=== PATIENT | female | born 1940 | race Caucasian/White ===

== ENCOUNTER 2023-08-25 18:58 | Inpatient (IN) | payer OTHER, SELFPAY ==
[2023-08-25 15:07] VITALS: BP 164/71
--- NOTE | 2023-08-25 16:16 | W.PN.CARDCBS ---
Today's Communication / Plan
-
await labs
IV lasix 40mg BID
decrease toprol to 25mg BID
stop dig. check dig level
Tentatively for implantation of new single-chamber right-sided pacemaker with left bundle pacing Tuesday08/29/2023
continue xarelto for now, however will need to hold pre PPM
Impression / Plan
-
Please refer to office note dated 08/25/23
Primary Health Safety Coordinator: Dr. ANSHUL Taylor
Assessment:
Nausea
Dizziness
Orthopnea
Acute on chronic HFrEF
Concern for failure of ventricular capture
Concern for digoxin toxicity
H/o Inappropriate ICD shock for lead fracture 06/23/23
Medtronic Bi-V ICD Implant
Failure of pacemaker lead LV lead off, diaphragmatic stimulation
LV lead Medtronic [id number] Attain from 06/20/03, RV lead Medtronic 6947 Sprint Quattro from 06/20/03, RA Medtronic 5076 CapSureFix from 10/19/02
CKD 3b
CAD
s/p anterior AL with LAD stent 1995
Ischemic cardiomyopathy
LBBB (left bundle branch block)
Permanent Afib
Chronic anticoagulation with Xarelto
PAD with lower extremity claudication/Occluded R subclavian/bilateral SFA occlusion
Bilateral renal artery stenosis status post bilateral stents
Hypertension
Former smoker
Hyperlipidemia
Type 2 diabetes mellitus
Gout
Echo 06/21/2023: EF 43%, apex and apical septum and apical inferior akinetic/hypokinetic (already known), severely enlarged bilateral atria, mild MR, mild TR
Plan:
-Patient with history of permanent atrial fibrillation, heart failure with mildly reduced EF, ischemic cardiomyopathy status post BiV ICD implant, chronic left bundle branch block, PAD who had been doing well until [place] time. She presented at
that time with dehydration nausea and vomiting and inappropriate ICD discharges related to an RV lead fracture. At that time her ICD tachycardia therapies were turned off due to inappropriate discharges. Then in June she had another admission
for viral illness and possible heart failure. She was then admitted later in June with acute heart failure and at that point heart rate was difficult to control, transiently on digoxin. The beginning of July she was still felt to be in
acute heart failure and furosemide dose increased and cardiomyopathy medicines added back. Digoxin was restarted at that time as well. Most recent outpatient digoxin level was 1.1 and her dig dose was decreased last week due to this. She
presented to the office today with orthopnea, nausea, dizziness, weakness. Device interrogation today in office showed bradycardia, increased ventricular capture threshold, as well as evidence of some failure to capture. Her LV lead produces
diaphragmatic pacing. She is not pacer dependent. Her ventricular rate was increased from 50-70 and output was increased from 2 V to 4 V for now. Plan for admission for diuresis and medical adjustment, with plan for implantation of new
single-chamber pacemaker on the right with left bundle pacing likely early next week.
-Labs pending at this time
-Check dig level. Stop outpatient dig
-IV Lasix 40 mg twice daily
-Decrease Toprol to 25 mg twice daily with hold parameters (was on 50mg BID as OP)
-Continue Xarelto 15mg QPM for now, however will need to hold prior to pacemaker implantation
-Follow on telemetry
-Tentatively for implantation of new single-chamber right-sided pacemaker with left bundle pacing Tuesday08/29/2023
-d/w ER DIRECTOR STRATEGIC PLANNING
Progress Note - Health Safety Coordinator
Subjective
Date of Service: August 25, 2023
Currently feeling okay, just tired. Reports dyspnea on exertion, dizziness, nausea with standing and walking
Objective
Vital Signs and I&O:
Vital Signs
Temp Pulse Resp BP Pulse Ox
97.5 F 70 18 164/71 99
08/25/23 15:07 08/25/23 15:07 08/25/23 15:07 08/25/23 15:07 08/25/23 15:07
Vital Signs
Temp Pulse Resp BP Pulse Ox
97.5 F 70 18 164/71 99
08/25/23 15:07 08/25/23 15:07 08/25/23 15:07 08/25/23 15:07 08/25/23 15:07
Physical Exam
Physical Exam
GEN: No distress, awake, alert, oriented x3
HEENT: supple, anicteric, mmm, eomi. mild subconjunctival hemorrhage on R
LUNGS: CTA anterolaterally, no wheezes/rales
CV: Irreg, S1/S2, no murmur
ABD: soft, BS+, NT/ND
EXT: No cyanosis, clubbing. Trace edema of B/L LE
NEURO: Gross non-focal
SKIN: Warm, pink, dry. No rash
--- NOTE | 2023-08-25 16:37 | ED.GENMED ---
History of Present Illness
<JACY Goldberg - Last Filed: 08/25/23 18:42>
General
Chief Complaint: Heart Rate Problem
Source: patient
Exam Limitations: none
Time Seen by Provider: 08/25/23 16:28
Nursing documentation reviewed up to this point in time: agreed with
Travel History
Have you had any contact with someone who has COVID-19?: No
Do you have any symptoms of coronavirus? Fever > 100 degrees, chills, cough, shortness of breath, sore throat, loss of taste or smell, muscle aches, or headache?: No
History of Present Illness
History of Present Illness:
Patient is an 83-year-old female with past medical history of hypertension hyperlipidemia [place] CHF pacemaker ICD ,, afib, on Xarelto send from cardiology Dr. aTylor's office. Patient was seen today by cardiology and found to have a low heart rate.
She felt lightheaded and nauseous in the office. Her heart rate was 50 in the office, physician assistant baseball coach reports that her pacemaker was previously set to 50 because she had a history of elevated heart rate. Dr. Taylor did increase her heart rate
to 70 and also increased her voltage. Dr Taylor felt that pt also had a component of chf pt is to be admitted for CHF with plan for new pacemaker on Tuesday.
Pt presently has no complaints.SHe does report that recently she has had intermittent dizziness and at times shortness of breath. Denies chest pain.
Past History
<JACY Goldberg - Last Filed: 08/25/23 18:42>
Past History
ED Past Medical History: Arrthythmia (Atrial fibrillation), CHF, HTN and NIDDM
ED Past Surgical History: Other (Agree with documented past medical history)
Social History
Tobacco: Former smoker
Alcohol: None
Drug: None
Personal:
Living: with family
Employment: Retired
Family History
Family History: Diabetes
Review of Systems
<JACY Goldberg - Last Filed: 08/25/23 18:42>
Review of Systems
Allergies reviewed?: Yes
All Other Systems: ROS reviewed and negative except as documented in HPI and ROS
Constitutional: Reports no symptoms; Denies fever, fatigue or chills
EENT: Reports no symptoms
Respiratory: Reports trouble breathing and other (denies now )
Cardiac: Reports no symptoms
ABD/GI: Reports no symptoms
Musculoskeletal: Reports no symptoms
Skin: Reports no symptoms
Neurological: Reports dizzy
Endocrine: Reports no symptoms
Hematologic/Lymphatic: Reports no symptoms
Psychiatric: Reports no symptoms
Phy Exam
<JACY Goldberg - Last Filed: 08/25/23 18:42>
General Physical Exam
General Presentation: no apparent distress
General age: appears stated age
General Skin: warm and dry
General Habitus: normal
General Mental: alert
General Hydration: appears well hydrated
ENT Exam
ENT Exam: EOMI and neck supple
Eye Exam
Eye Exam: PERRL, EOMI and other (pt with subconjunctival hemorrhage right eye reports woke up this way today )
Cardiovascular Exam
Cardiovascular Exam: regular rate/rhythm, no murmur and normal peripheral pulses
Pulmonary Exam
Pulmonary Exam: lungs clear and no respiratory distress
Neurological Exam
Neurological Exam: alert and oriented x3
Musculoskeletal Exam
Musculoskeletal Exam: full ROM
Skin Exam
Skin Exam: normal color and warm/dry
Psychiatric Exam
Psychiatric Exam: normal mood/affect
Course
<JACY Goldberg - Last Filed: 08/25/23 18:42>
Orders/Labs/Results
Orders:
Orders
08/25/23 15:08
Electrocardiogram (*1) Urgent
Reason for Study: Fatigue / Weakness
EKG- Treatment ONCE
08/25/23 16:32
IV Insert/Care/Rem.- Treatment PRN
08/25/23 16:33
Cardiac Monitoring- Treatment ONCE
08/25/23 16:41
Chest [CR Chest - 2 Views ] Urgent
Comment:
Reason For Exam: sob
08/25/23 16:55
Complete Blood Count/With Diff Urgent
Comprehensive Metabolic Panel Urgent
Digoxin Urgent
Pro-BNP [NT-proBNP] Urgent
TSH Urgent
08/25/23 17:04
CARDIOLOGY CONSULT Routine
Consulting Provider: Alon Taylor
Was physician already notified: Yes
08/25/23 18:20
Admit/Transfer Patient As Directed
Co-Sign Provider:
Level of Care: Inpatient admission
Assign to:: Telemetry
Physician / Group: ariadna gary
Diagnosis: CHF
Reason for Telemetry: Acute Heart Failure
Date to Stop Telemetry: 08/28/23
Time to Stop Telemetry: 11:00
Reason for Hospitalization: CHF
Expected length of stay greater than two midnights?: Yes
ELOS- Estimated Length of Stay in days: 3
I certify the patient meets the requirements for IP care: Yes
08/25/23 18:24
Code Status As Directed
Resuscitation Status: Full Code
08/28/23 11:00
DC Protocol for Telemetry ONCE
Abnormal Lab Results
08/25/23
16:55
RBC 3.10 L 10^6/uL
(4.20-5.40)
Hgb 10.9 L g/dL
(12.0-16.0)
Hct 31.2 L %
(37.0-47.0)
MCV 100.6 H fL
(81.0-99.0)
MCH 35.2 H pg
(27.0-31.0)
RDW 18.2 H %
(11.5-14.5)
Absolute Lymphs (auto) 0.9 L 10^3/uL
(1.2-3.4)
Lymphocytes % 19.1 L %
(20.5-51.1)
Monocytes % 10.8 H %
(1.7-9.3)
BUN 18 H mg/dl
(7-17)
Glucose 101 H mg/dl
(70-99)
Total Bilirubin 2.8 H mg/dl
(0.2-1.3)
08/25/23 16:55
08/25/23 16:55
Vital Signs
Initial and Last Documented VS:
Initial Vital Signs
Temp Pulse Resp BP Pulse Ox
97.5 F 70 18 164/71 99
08/25/23 15:07 08/25/23 15:07 08/25/23 15:07 08/25/23 15:07 08/25/23 15:07
Last Documented Vital Signs
Temp Pulse Resp BP Pulse Ox
97.5 F 70 18 164/71 99
08/25/23 15:07 08/25/23 15:07 08/25/23 15:07 08/25/23 15:07 08/25/23 15:07
Registered Nurse Behavioral Health consulted with Physician
Registered Nurse Behavioral Health consulted with physician?: Yes
Name of Physician Consulted: nya
<Cheko Mace, DO - Last Filed: 08/25/23 17:00>
Orders/Labs/Results
Orders:
Orders
08/25/23 15:08
Electrocardiogram (*1) Urgent
Reason for Study: Fatigue / Weakness
EKG- Treatment ONCE
08/25/23 16:32
IV Insert/Care/Rem.- Treatment PRN
08/25/23 16:33
Cardiac Monitoring- Treatment ONCE
08/25/23 16:41
Chest [CR Chest - 2 Views ] Urgent
Comment:
Reason For Exam: sob
08/25/23 16:55
Complete Blood Count/With Diff Urgent
Comprehensive Metabolic Panel Urgent
Digoxin Urgent
Pro-BNP [NT-proBNP] Urgent
TSH Urgent
08/25/23 17:04
CARDIOLOGY CONSULT Routine
Consulting Provider: Alon Taylor
Was physician already notified: Yes
08/25/23 18:20
Admit/Transfer Patient As Directed
Co-Sign Provider:
Level of Care: Inpatient admission
Assign to:: Telemetry
Physician / Group: ariadna gary
Diagnosis: CHF
Reason for Telemetry: Acute Heart Failure
Date to Stop Telemetry: 08/28/23
Time to Stop Telemetry: 11:00
Reason for Hospitalization: CHF
Expected length of stay greater than two midnights?: Yes
ELOS- Estimated Length of Stay in days: 3
I certify the patient meets the requirements for IP care: Yes
08/25/23 18:24
Code Status As Directed
Resuscitation Status: Full Code
08/28/23 11:00
DC Protocol for Telemetry ONCE
Abnormal Lab Results
08/25/23
16:55
RBC 3.10 L 10^6/uL
(4.20-5.40)
Hgb 10.9 L g/dL
(12.0-16.0)
Hct 31.2 L %
(37.0-47.0)
MCV 100.6 H fL
(81.0-99.0)
MCH 35.2 H pg
(27.0-31.0)
RDW 18.2 H %
(11.5-14.5)
Absolute Lymphs (auto) 0.9 L 10^3/uL
(1.2-3.4)
Lymphocytes % 19.1 L %
(20.5-51.1)
Monocytes % 10.8 H %
(1.7-9.3)
BUN 18 H mg/dl
(7-17)
Glucose 101 H mg/dl
(70-99)
Total Bilirubin 2.8 H mg/dl
(0.2-1.3)
08/25/23 16:55
08/25/23 16:55
Vital Signs
Initial and Last Documented VS:
Initial Vital Signs
Temp Pulse Resp BP Pulse Ox
97.5 F 70 18 164/71 99
08/25/23 15:07 08/25/23 15:07 08/25/23 15:07 08/25/23 15:07 08/25/23 15:07
Last Documented Vital Signs
Temp Pulse Resp BP Pulse Ox
97.5 F 70 18 164/71 99
08/25/23 15:07 08/25/23 15:07 08/25/23 15:07 08/25/23 15:07 08/25/23 15:07
<JCAY Goldberg - Last Filed: 08/25/23 18:42>
MDM/Problems Addressed
Differential Diagnosis Includes:
not limited to : dysfunction of PM chf
MDM/Problems Addressed:
83-year-old female sent by cardiology for admission. Patient was found to have low heart rate in the office, she has noted to have a fracture wire from her pacemaker. Patient will need admission for new pacemaker insertion. Also mill hand plate mill
concerned about a component of CHF. Patient has been complaining of intermittent shortness of breath and dizziness. Patient is presently asymptomatic stable vital signs. Digoxin level 0.9. Patient denies any cough URI symptoms fever chills.
Formal radiology report does read lung space showing mild airspace disease in both lower lung mantilla left greater than right no perfusion or pneumothorax will hold off on antibiotics no clinical s/s. Patient adm to hospitalist service.
Chronic conditions affecting care:
aifb/on antcoag, PM
<JACY Goldberg - Last Filed: 08/25/23 18:42>
*Radiology
Radiology exam reviewed: radiology read reviewed
*Pulse Oximetry
Patient hypoxic: no
*EKG
Interpreted by ED Provider?: Yes
Heart Rate: 53
Rate: bradycardiac
Rhythm: a-fib and ventricular paced
QRS Pattern: left bundle branch block
Ischemia: no ischemia
*Critical Care Note
Total Time (30-74mins, 75-104mins- exclusive of procedures): Not Applicable
ED Attending Note
<JACY Goldberg - Last Filed: 08/25/23 18:42>
-
Portions of this chart may have been created with voice recognition software.� Occasional wrong word or��sound alike� substitutions may have occurred due to the inherent limitations of voice recognition software.
<Cheko Mace DO - Last Filed: 08/25/23 17:00>
ED Attending Note
Patient seen and examined by attending physician: Yes
I performed the substantive portion of visit, reviewed & personally made and approve the management plan that is documented in note by myself or BC.: Yes
ED Attending Note:
I have seen and evaluated the patient with a [id number] encounter. I have spoken to the advance practicer provider and involved in the medical history, the physical exam, medical decision making.
Evaluation and management service: agree unless noted differently below.
Results interpretation: agree unless noted differently below.
Focused HPI: 83-year-old female presenting for evaluation of shortness of breath. Patient states she is feeling better but patient found to have a failing pacemaker. Cardiology evaluated her and sent her in for admission for probable new pacemaker
on Tuesday
Physical exam: Sitting in bed comfortably. No acute distress. No respiratory distress
Medical Decision Making: Will admit to hospital service admit cardiology will follow
Discharge Plan
Departure
Patient Disposition: Admit
Date of Disposition: 08/25/23
Time of Disposition: 17:42
Admit to: Telemetry
Admit to doctor: hospitalist
Presentation/result/management discussed w/ accepting MD/DO: Hospitalist
Patient with high blood pressure during this ER visit?: Yes
Condition: Fair
Covid-19: Not Applicable
Discharge Problem:
Dizziness
Prescriptions:
No Action
Xarelto 15 mg tablet
15 mg PO QPM 30 Days Qty: 30 0RF
metoprolol succinate 50 mg Tablet Extended Release 24 Hr
50 mg PO BID 30 Days Qty: 60 0RF
furosemide 40 mg tablet
40 mg PO DAILY
ferrous sulfate [FeroSul] 325 mg (65 mg iron) tablet
325 mg PO DAILY
Entresto 24-26 mg Tablet
1 tab PO BID Qty: 60 0RF
potassium chloride 10 mEq Tablet Extended Release
10 meq PO BID
digoxin 125 mcg (0.125 mg) Tablet
125 mcg PO DAILY
Referrals:
Richard Reagan MD [Family Provider] -
Interventions
Interventions:
*Risk Screen - Suicide Last Done: 08/25/23 15:07
*General Assessment Last Done: 08/25/23 15:07
*Neglect/Abuse Screening Last Done: 08/25/23 15:07
*ED COVID-19 Vaccine History Last Done: 08/25/23 15:07
[2023-08-25 17:11] LABS: % Basophils 1.6 % (0-2); % Eosinophils 2.2 % (0-6); % Immature Granulocytes 0.4 % (0-0.5); % Lymphocytes 19.1 % (20.5-51.1); % Monocytes 10.8 % (1.7-9.3); % Neutrophils 65.9 % (42.2-75.2); Absolute Basophils 0.1 10^3/uL (0-0.2); Absolute Eosinophils 0.1 10^3/uL (0-0.7); Absolute Lymphocytes 0.9 10^3/uL (1.2-3.4); Absolute Monocytes 0.5 10^3/uL (0.1-0.6); Absolute Neutrophils 3.2 10^3/uL (1.4-6.5); Hematocrit 31.2 % (37.0-47.0); Hemoglobin 10.9 g/dL (12.0-16.0); Mean Corp Hgb Conc. 34.9 g/dL (33.0-37.0); Mean Corpuscular Hgb 35.2 pg (27.0-31.0); Mean Corpuscular Volume 100.6 fL (81.0-99.0); Mean Platelet Volume 9.8 fL (7.4-10.4); Nucleated Red Blood Cells % 0 %; Platelet Count 181 10^3/uL (130-400); Red Cell Dist. Width 18.2 % (11.5-14.5); White Blood Cell Count 4.9 10^3/uL (4.8-10.8)
[2023-08-25 17:27] LABS: ALT (SGPT) 19 U/L (0-35); AST (SGOT) 26 U/L (14-36); Alkaline Phosphatase 110 U/L (38-126); Blood Urea Nitrogen 18 mg/dl (7-17); Calcium 9.2 mg/dl (8.4-10.2); Carbon Dioxide 27 mmol/L (22-30); Chloride 106 mmol/L (98-107); Digoxin 0.9 ng/ml (0.8-2.0); Glucose 101 mg/dl (70-99); Potassium 4.1 mmol/L (3.5-5.1); Sodium 137 mmol/L (135-145); Total Bilirubin 2.8 mg/dl (0.2-1.3); Total Protein 6.9 g/dl (6.3-8.2); eGFR > 60.00
[2023-08-25 17:31] LABS: NT-proBNP 13500 pg/ml
--- NOTE | 2023-08-25 18:01 | HPS.HSE ---
Addendum entered and electronically signed by Ryland Moya MD 08/25/23 22:20:
I independently saw and examined the patient on August 25, 2023.
The REGISTERED N[facility]SE BEH[facility]IORAL HEALTH's note was reviewed and I agree with the note.
Comment:
83-year-old female with past medical history of hypertension hyperlipidemia [place] CHF pacemaker ICD, afib, on Xarelto was sent from practice specialist Dr. Taylor's office due to lightheadedness. Patient was seen today by cardiology and found to have a low
heart rate. She felt lightheaded and nauseous in the office. Her heart rate was 50 in the office, physician certified pharmacist assistant reports that her pacemaker was previously set to 50 bpm because she had a history of elevated heart rate. Dr. Taylor did increase
her pacemaker heart rate to 70 and also increased her voltage.
Vital Signs
AFVSS
Physical Exam
General: Well Developed, Well Nourished and No Apparent Distress
HEENT: Normocephalic, Moist mucous membranes and Atraumatic
Respiratory: Decreased breath sounds bilaterally
Cardiac: S1/S2 and Regular Rhythm
GI: Soft, Non Tender, Non Distended and Normal Bowel Sounds
Musculoskeletal: No Cyanosis and No Edema
Skin: Warm. Dry.
Neuro: AAO x 3 and Nonfocal/grossly intact
Psych: Calm
Assessment/Plan
# Dizziness likely from bradycardia
-EKG with A-fib with slow ventricular response, left bundle branch block
-Toprol decreased to 25 mg twice a day
-Stop digoxin
-As per cardiology tentatively for implantation of new single-chamber right-sided pacemaker with left bundle pacing on Tuesday08/29/23
-Xarelto continued
-Cardiology consulted, recommendations appreciated
#intermittent short of breath likely CHF exacerbation
-BNP 15445
-IV Lasix 40 mg twice a day
-Echo 06/21/23: EF 43%. Normal right ventricular size and function. Severely enlarged left atrium. Severely enlarged right atrium. Mild mitral regurgitation. Mild tricuspid regurgitation.
-Daily weights
-Strict JOSE
# Anemia of chronic disease
-Hemoglobin stable at 10.9
-No active bleeding
-Continue to monitor
#Essential Hypertension
-cont BB
-Entresto continued
#PAD with lower extremity claudication/Occluded R subclavian/bilateral SFA occlusion
#Bilateral renal artery stenosis status post bilateral stents
#h/o CAD s/p PCI: cont BB
#h/o Medtronic Bi-V ICD Implant
Review history
#FULL/Xarelto
Original Note:
Family Physician
-
Family Physician: Richard Reagan
Chief Complaint
-
sob
dizzy
History of Present Illness
83-year-old female with past medical history of hypertension hyperlipidemia [place] CHF pacemaker ICD ,, afib, on Xarelto send from cardiology Dr. Taylor's office.patient stated dizzy when she is up. Patient was seen today by cardiology and found to have
a low heart rate.� She felt lightheaded and nauseous in the office.� Her heart rate was 50 in the office, physician certified pharmacist assistant reports that her pacemaker was previously set to 50 because she had a history of elevated heart rate.� Dr. Taylor did
increase her heart rate to 70 and also� increased� her voltage. patient also complained of sob. denied chest pain. denied fever, chills. denied runny nose congestion and cough. denied abdominal pain diarrhea. stated she does not feel like fully
emptying her bladder.
plan for pacemaker change on Tuesday. admitting for further management.
Medical History
Past Medical History
Past Medical History: Reports Other
Additional Past Medical History:
Viral respiratory illness
chronic heart failure with medium ejection fraction
chronic kidney disease stage III ???
mild Anemia
mild vitamin B12 deficiency,
iron deficiency, anemia of chronic disease
Atrial fibrillation
hyperlipidemia, peripheral arterial disease, coronary artery disease
Past Surgical History: Reports Other
Additional Past Surgical History:
AICD implant , PCI
cardiac stent
right shoulder surgery
Social History
Tobacco: Former Smoker
Alcohol: None
Drug: None
Family History
Family History: Not pertinent
Allergies / Home Medications
Allergies reflects when Allergies were last updated in [facility].
Home Medications with original date entered in [facility]
Allergy/Medication List:
Allergies
Allergy/AdvReac Type Severity Reaction Status Date / Time
No Known Allergies Allergy Verified 08/25/23 15:08
Home Medications
metoprolol succinate 50 mg tablet,extended release 24 hr 50 mg PO BID 30 days #60 tabs 07/06/23
rivaroxaban 15 mg tablet (Xarelto) 15 mg PO QPM 30 days #30 tabs 07/06/23
ferrous sulfate 325 mg (65 mg iron) tablet (FeroSul) 325 mg PO DAILY Supplement 07/17/23
furosemide 40 mg tablet 40 mg PO DAILY Fluid Retention/Swelling 07/17/23
sacubitril 24 mg-valsartan 26 mg tablet (Entresto) 1 tab PO BID #60 tabs 07/20/23
digoxin 125 mcg (0.125 mg) tablet 125 mcg PO DAILY 08/25/23
potassium chloride 10 mEq tablet,extended release 10 meq PO BID 08/25/23
Review of Systems
-
Constitutional: Reports No Symptoms
EENT: Reports No Symptoms
Respiratory: Reports Trouble Breathing
Cardiac: Reports No Symptoms
Abdomen/GI: Reports No Symptoms
: Reports No Symptoms
Musculoskeletal: Reports No Symptoms
Skin: Reports No Symptoms
Neurological: Reports Dizzy
Endocrine: Reports No Symptoms
Hematologic/Lymphatic: Reports No Symptoms
Psych: Reports No Symptoms
Physical Exam
Vital Signs
Vital Signs
Temp Pulse Resp BP Pulse Ox
97.5 F 70 18 164/71 99
08/25/23 15:07 08/25/23 15:07 08/25/23 15:07 08/25/23 15:07 08/25/23 15:07
Physical Exam
General: Well Developed, Well Nourished and No Apparent Distress
HEENT: NormoCephalic, Moist mucous membranes and Atraumatic
Respiratory: Clear
Cardiac: S1/S2 and Regular Rhythm; No Murmur or Rub
GI: Soft, Non Tender, Non Distended and Normal Bowel Sounds; No Organomegaly
Rectal: Deferred by Provider
Musculoskeletal: No Clubbing, No Cyanosis and No Edema
Skin: No Rash
Neuro: AO x 3 and Nonfocal/grossly intact
Psych: Calm
Laboratory Results
-
08/25/23 16:55
08/25/23 16:55
Laboratory Results
Total Bilirubin 2.8 mg/dl (0.2-1.3) H 08/25/23 16:55
AST 26 U/L (14-36) 08/25/23 16:55
ALT 19 U/L (0-35) 08/25/23 16:55
Alkaline Phosphatase 110 U/L (38-126) 08/25/23 16:55
Data Reviewed
-
Lab Data: Labs Reviewed by me
Impression/Plan
-
# Dizziness likely from bradycardia
-EKG with A-fib with slow ventricular response, left bundle branch block
-Toprol decreased to 25 mg twice a day
-Stop digoxin
-As per cardiology tentatively for implantation of new single-chamber right-sided pacemaker with left bundle pacing on Tuesday
-Xarelto continued
-Cardiology consulted
#intermittent short of breath likely CHF exacerbation
-BNP 14032
-IV Lasix 40 mg twice a day
-Echo 06/21/23: EF 43%. Normal right ventricular size and function.�Severely enlarged left atrium.�Severely enlarged right atrium.�Mild mitral regurgitation.�Mild tricuspid regurgitation.
-Daily weights
-Strict JOSE
# Anemia of chronic disease
-Hemoglobin stable at 10.9
-No active bleeding
-Continue to monitor
#Essential Hypertension
-cont BB
-Entresto continued
#PAD with lower extremity claudication/Occluded R subclavian/bilateral SFA occlusion
#Bilateral renal artery stenosis status post bilateral stents
#h/o CAD s/p PCI: cont BB
#h/o Medtronic Bi-V ICD Implant
#FULL/Xarelto
[2023-08-25 18:08] LABS: TSH 3.79 uIU/ml (0.47-4.68)
[2023-08-25 19:40] VITALS: BP 164/70
[2023-08-25 19:57] VITALS: BMI 24.8
[2023-08-25 20:14] VITALS: BMI 24.8
[2023-08-25 20:19] VITALS: BMI 24.8
--- NOTE | 2023-08-25 20:29 | PTCARENOTE ---
Patient admitted from ED via stretcher with diagnosis of CHF. Patient is AAO x3, on RA, in no acute distress. Tele monitor applied. Patient oriented to unit and call coleman is within reach.
[2023-08-25] MEDS: XARELTO 15 MG PO (20:30)
[2023-08-25] MEDS: TOPROL XL 25 MG PO (20:31)
[2023-08-25] MEDS: ENTRESTO 24 MG/26 MG 1 TAB PO (20:31)
[2023-08-25] MEDS: KCL 10 MEQ PO (20:32)
[2023-08-25] MEDS: ATIVAN 0.5 MG PO (21:11)
[2023-08-26] VITALS (8 sets, daily range): BP systolic 106–152; BP diastolic 44–66; BMI 24.6
[2023-08-26 07:46] LABS: Hematocrit 29.3 % (37.0-47.0); Hemoglobin 9.9 g/dL (12.0-16.0); Mean Corp Hgb Conc. 33.8 g/dL (33.0-37.0); Mean Corpuscular Hgb 34.1 pg (27.0-31.0); Platelet Count 167 10^3/uL (130-400); Red Cell Dist. Width 17.8 % (11.5-14.5); White Blood Cell Count 4.5 10^3/uL (4.8-10.8)
[2023-08-26 08:33] LABS: ALT (SGPT) 18 U/L (0-35); AST (SGOT) 24 U/L (14-36); Albumin 3.4 g/dl (3.5-5.0); Alkaline Phosphatase 104 U/L (38-126); Blood Urea Nitrogen 18 mg/dl (7-17); Calcium 8.6 mg/dl (8.4-10.2); Carbon Dioxide 25 mmol/L (22-30); Chloride 109 mmol/L (98-107); Direct Bilirubin 0.6 mg/dl (0.0-0.4); Estimated Creatinine Clearance 37 ml/min; Glucose 106 mg/dl (70-99); HDL Cholesterol 23 mg/dl; LDL Cholesterol, Calculated 25 mg/dl; Magnesium 2.4 mg/dl (1.6-2.3); Potassium 3.8 mmol/L (3.5-5.1); Sodium 138 mmol/L (135-145); Total Bilirubin 2.3 mg/dl (0.2-1.3); Total Cholesterol 84 mg/dl (50-199); Total Protein 6.2 g/dl (6.3-8.2); Triglyceride 182 mg/dl (10-149); Very Low Density Lipoprotein 36 mg/dl (0-30); eGFR > 60.00
[2023-08-26] MEDS: ENTRESTO 24 MG/26 MG 1 TAB PO ×2 (08:42→21:56)
[2023-08-26] MEDS: KCL 10 MEQ PO ×2 (08:43→21:57)
[2023-08-26] MEDS: LASIX 40 MG IV ×2 (08:44→17:13)
[2023-08-26] MEDS: FEOSOL 325 MG PO (08:44)
[2023-08-26] MEDS: TOPROL XL 25 MG PO (08:45)
--- NOTE | 2023-08-26 08:49 | W.PN.CARDCBS ---
Addendum entered and electronically signed by Alon Taylor MD 08/26/23 11:14:
Patient again has lost capture with pacemaker. Will proceed with new pacemaker system today.
Addendum entered and electronically signed by Alon Taylor MD 08/26/23 10:39:
Pacemaker interrogated, sensor turned off so she will paced V00. Outputs maximized. Capture now good,
Will hold metoprolol and digoxin, plan on pacemaker on Tuesday. Consider transfer to IVU.
Original Note:
Today's Communication / Plan
-
Interrogate pacemaker, maximize voltage and pulse with, decrease sensitivity
Continue to hold metoprolol and digoxin
Patient will need pacemaker. Would not intervene on current system at present, favor single-chamber conduction system pacing via right subclavian vein
Timing to be determined based on pacemaker interrogation
Okay to continue IV Lasix at present
Discussed with Dr. Cristobal
Impression / Plan
-
Please refer to office note dated 08/25/23
Primary Uc Architect: Dr. ANSHUL Taylor
Assessment:
Nausea
Dizziness
Orthopnea
Acute on chronic HFrEF
Concern for failure of ventricular capture
Concern for digoxin toxicity
H/o Inappropriate ICD shock for lead fracture 06/23/23
Medtronic Bi-V ICD Implant
Failure of pacemaker lead LV lead off, diaphragmatic stimulation
LV lead Medtronic [id number] Attain from 06/20/03, RV lead Medtronic 6947 Sprint Quattro from 06/20/03, RA Medtronic 5076 CapSureFix from 10/19/02
CKD 3b
CAD
s/p anterior [place] with LAD stent 1995
Ischemic cardiomyopathy
LBBB (left bundle branch block)
Permanent Afib
Chronic anticoagulation with Xarelto
PAD with lower extremity claudication/Occluded R subclavian/bilateral SFA occlusion
Bilateral renal artery stenosis status post bilateral stents
Hypertension
Former smoker
Hyperlipidemia
Type 2 diabetes mellitus
Gout
Echo 06/21/2023: EF 43%, apex and apical septum and apical inferior akinetic/hypokinetic (already known), severely enlarged bilateral atria, mild MR, mild TR
Plan:
She looks better regarding heart failure, but her right ventricular lead function is deteriorating.
We will interrogate pacemaker, maximize output, decrease sensitivity and make decision about timing of new pacing system, would like to optimize hemodynamic status for another 48 hours but may need to proceed today based on interrogation.
Restart spironolactone
Hold digoxin and metoprolol
Keep n.p.o. for now
-Patient with history of permanent atrial fibrillation, heart failure with mildly reduced EF, ischemic cardiomyopathy status post BiV ICD implant, chronic left bundle branch block, PAD who had been doing well until [place] time. She presented at
that time with dehydration nausea and vomiting and inappropriate ICD discharges related to an RV lead fracture. At that time her ICD tachycardia therapies were turned off due to inappropriate discharges. Then in June she had another admission
for viral illness and possible heart failure. She was then admitted later in June with acute heart failure and at that point heart rate was difficult to control, transiently on digoxin. The beginning of July she was still felt to be in
acute heart failure and furosemide dose increased and cardiomyopathy medicines added back. Digoxin was restarted at that time as well. Most recent outpatient digoxin level was 1.1 and her dig dose was decreased last week due to this. She
presented to the office today with orthopnea, nausea, dizziness, weakness. Device interrogation today in office showed bradycardia, increased ventricular capture threshold, as well as evidence of some failure to capture. Her LV lead produces
diaphragmatic pacing. She is not pacer dependent. Her ventricular rate was increased from 50-70 and output was increased from 2 V to 4 V for now. Plan for admission for diuresis and medical adjustment, with plan for implantation of new
single-chamber pacemaker on the right with left bundle pacing likely early next week.
Progress Note - Uc Architect
Subjective
Date of Service: August 26, 2023:
Still dizzy, mildly nauseated, breathing is better
Allergies: None
Outpatient medications: Digoxin 125 mcg 5 days a week, iron, furosemide 40 mg twice daily, potassium 10 mill equivalents, 3 tabs per day, furosemide 40 mg twice daily, metoprolol ER 50 mg twice daily, Xarelto 15 mg a day, had been on spironolactone
0.5 mg daily and Entresto twice daily
Current meds: Potassium 10 mill equivalents twice daily, metoprolol ER 25 mg twice daily, rivaroxaban 15 mg daily, Entresto twice daily, furosemide 40 mg IV twice daily, currently not on spironolactone, digoxin stopped
PMH/PSH/SH/FH: Reviewed
Review of systems: Negative except as above
Hemoglobin 9.9, white count 4.5, platelets 167, BUN/creatinine 18 and 0.9, potassium 3.8, magnesium 2.4, bilirubin 2.3, LFTs normal, proBNP 13,500, digoxin level 0.9
Telemetry, intermittent failure of capture, probably over sensing with intubation of pacer as well
Objective
Labs:
08/26/23 07:24
08/26/23 07:24
Labs
Hgb 9.9 g/dL (12.0-16.0) L 08/26/23 07:24
Hct 29.3 % (37.0-47.0) L 08/26/23 07:24
Plt Count 167 10^3/uL (130-400) 08/26/23 07:24
Sodium 138 mmol/L (135-145) 08/26/23 07:24
Potassium 3.8 mmol/L (3.5-5.1) 08/26/23 07:24
BUN 18 mg/dl (7-17) H 08/26/23 07:24
Creatinine 0.9 mg/dL (0.6-1.0) 08/26/23 07:24
Glucose 106 mg/dl (70-99) H 08/26/23 07:24
Digoxin 0.9 ng/ml (0.8-2.0) 08/25/23 16:55
Vital Signs and I&O:
Vital Signs
Temp Pulse Resp BP Pulse Ox
36.5 C 70 24 147/66 93
08/26/23 07:05 08/26/23 08:45 08/26/23 07:05 08/26/23 08:45 08/26/23 07:05
Vital Signs
Temp Pulse Resp BP Pulse Ox
36.5 C 70 24 147/66 93
08/26/23 07:05 08/26/23 08:45 08/26/23 07:05 08/26/23 08:45 08/26/23 07:05
Intake & Output
08/24/23 08/25/23 08/26/23 08/27/23
07:59 07:59 07:59 07:59
Intake Total 120 / 120
Balance 120 / 120
Physical Exam
Physical Exam
147/66, pulse 70, intake and output incomplete, weight is 61 kg, down 0.4 kg
Head neck exam unremarkable, no distress, lungs are clear, relatively bradycardic, no obvious murmurs, JVD okay, abdomen okay, extremities without clubbing cyanosis or edema
[2023-08-26 08:54] LABS: TSH Reflex To Free T4 3.06 uIU/ml (0.47-4.68)
[2023-08-26 09:37] LABS: Troponin I 0.084 ng/ml
--- NOTE | 2023-08-26 11:10 | CM ---
Chart reviewed. Spoke with pt, and son at bedside
Pt lives in a mobile home with and son.
Reports ambulates with rolling walker/cane, needs some assist
DME includes rolling walker, cane, shower chair and wheel chair
Denies past snf. Has had [facility] VNA in past
Will have ride at d/c
Discussed IMM
PCP - Dr Luis Antonio Sherman
Pharm - [facility]
PT/OT pending
Poss transfer to IMU today
Plan - TBD
[2023-08-26] MEDS: ALDACTONE 12.5 MG PO (12:29)
--- NOTE | 2023-08-26 14:43 | PTCARENOTE ---
REPORT GIVEN TO CARDIAC FORMING MACHINE ADJUSTER. PATIENT TRANSFERRED TO CARDIAC FORMING MACHINE ADJUSTER WITHOUT.
--- NOTE | 2023-08-26 16:31 | ITS.CL.PACE ---
[facility] - Pacemaker Implant
Pacemaker Implant
Procedure Report:
Date of Procedure: August 26, 2023.
Procedure: Pacemaker Implantation.
Indication: The pacemaker is for the treatment of nonreversible symptomatic bradycardia due to second and third degree atrioventricular block. The remotely place RV ICD lead was actively failing (fracture) with intermittent noncapture or more likely
failure to output in VOO mode. Underlying rhythm is AFib in the low 30's.
Performing physician: Loi Veliz MD., [facility].
Implants:
Pulse Generator: Medtronic; Model# [id number]; Serial# [id number].
RV Lead: Medtronic; Model# 3830-69cm; Serial# [id number].
Technique: A time out was performed. The procedure site was identified. The patient was anesthetized by the anesthesia service. Preoperative cefazolin was administered. The patient was prepped and draped in the usual fashion. Local anesthetic was
applied to the right prepectoral subcutaneous tissue. A 3 inch incision was made along the right deltopectoral groove. Dissection was carried to the fascia. The right cephalic vein was easily isolated and proximal and distal control with 2-0 Vicryl
suture. Using a micropuncture needle to access the cephalic vein under direct visualization a wire was advanced into the central circulation. A 7 Fr introducer was placed over the wire. The RV lead was placed using utilizing the Megathreadtronic His
delivery catheter ([id number]) that was advanced to the left bundle area as confirmed by fluoroscopy in the [place] and [place] projections. The lead tip was advanced. PVC morphology was reviewed. When a satisfactory location was identified the lead was
screwed into position with serial turns. After each series of turns unipolar sensed morphology and impedance was, and paced morphology of V1 was analyzed. The lead was further advanced until satisfactory morphology and electrical characteristics
were confirmed. The third location was successful in direct LBB capture. The long guiding sheath was cut and removed from the RV without change in lead position, impedance, sensing, or capture. The lead was sutured to the underlying pectoralis
fascia with 0-silk suture. 8 volt pacing did not capture the diaphragm. The atrial lead was secured to the pectoralis muscle and fascia with two 0-silk sutures. A subcutaneous pocket was created with Bovie cautery. Hemostasis was excellent.The lead
was appropriately attached to the device. The pocket was irrigated with antibiotic solution. The device and leads were placed in the pocket. The incision was closed in three layers with absorbable suture. Steri-strips and an Aquacel dressing were
placed. Estimated blood loss was less than 5 ml. There were no complications. Fluoroscopy time:3.6 minutes and DAP 1.5 GyCM2. The device was then interrogated after skin closure. No IV contrast was administered. The ICD (left anterior chest) was
deactivated. The abandoned ICD is now programmed ODO with detections and alarms/alerts all turned off.
Lead Analysis:
RV lead: R: no [place] R waves/paced R waves from the ICD were large; Threshold: 0.75 V @ 0.4 ms (uni and bipolar); Impedance: 646 (uni) 866 (bipolar) ohms.
Paced QRS characteristics: V1 has qR morphology. QRS duration less than 100 ms. Latency/isoelectric interval from stim artifact to onset of QRS complex.
Final Programming: VVIR 70-130 bpm.
Conclusion: Uncomplicated single chamber Medtronic conduction system pacemaker implant with successful selective LBB capture. The pacing system is MRI conditional.
Recommendation: Routine post pacemaker care.
cc: JACY Solares; Pollo Bravo MD, and Alon Michel MD.
--- NOTE | 2023-08-26 16:40 | W.PN.HOSP.TC ---
Addendum entered and electronically signed by Ryland Moya MD 08/26/23 16:58:
Resume Xarelto Tuesday
Original Note:
Today's Communication/Plan
-
Transfer to IVU
Pacemaker today
Assessment / Plan
Assessment / Plan
Physical Exam
General: Well Developed, Well Nourished and No Apparent Distress
HEENT: Normocephalic, Moist mucous membranes and Atraumatic
Respiratory: Decreased breath sounds bilaterally
Cardiac: S1/S2 and Regular Rhythm
GI: Soft, Non Tender, Non Distended and Normal Bowel Sounds
Musculoskeletal: No Cyanosis and No Edema
Skin: Warm. Dry.
Neuro: AAO x 3 and Nonfocal/grossly intact
Psych: Calm
Assessment/Plan
# Dizziness likely from bradycardia
-Pacemaker interrogation as per cardiology
-Hold digoxin and metoprolol
-New pacemaker on August 26, 2023 as patient lost capture with pacemaker
-Xarelto continued
-Cardiology consulted, recommendations appreciated
#intermittent short of breath likely CHF exacerbation
-BNP 92556
-IV Lasix 40 mg twice a day
-Echo 06/21/23: EF 43%. Normal right ventricular size and function. Severely enlarged left atrium. Severely enlarged right atrium. Mild mitral regurgitation. Mild tricuspid regurgitation.
-Daily weights
-Strict JOSE
-Restart Spironolactone
# Anemia of chronic disease
-No active bleeding
-Continue to monitor
#Essential Hypertension
-cont BB
-Entresto continued
#PAD with lower extremity claudication/Occluded R subclavian/bilateral SFA occlusion
#Bilateral renal artery stenosis status post bilateral stents
#h/o CAD s/p PCI: cont BB
#h/o Medtronic Bi-V ICD Implant
Review history
#FULL/Xarelto
Anticipated Discharge: 24 - 48 hours
Subjective/Interval History
-
Date of Service: August 26, 2023
Patient was seen and examined. She reported no sleep last night but otherwise denied any other new, significant symptoms or complaints.
Objective Data
-
Labs:
Laboratory Results
08/26/23
07:24
WBC 4.5 L
Hgb 9.9 L
Hct 29.3 L
Plt Count 167
Sodium 138
Potassium 3.8
Chloride 109 H
Carbon Dioxide 25
BUN 18 H
Creatinine 0.9
Glucose 106 H
Calcium 8.6
Total Bilirubin 2.3 H
AST 24
ALT 18
Alkaline Phosphatase 104
Vital Signs:
Vital Signs
Temp Pulse Resp BP Pulse Ox
97.4 F 51 16 143/44 96
08/26/23 11:45 08/26/23 12:29 08/26/23 11:45 08/26/23 12:29 08/26/23 11:45
I&O
08/25/23 08/26/23 08/27/23
06:59 06:59 06:59
Intake Total 120 / 120
Balance 120 / 120
--- NOTE | 2023-08-26 18:00 | PTCARENOTE ---
RECEIVED PT POST R CHEST WALL SINGLE CHAMBER PACEMAKER . RECEIVED PT NEUROLOGICALLY INTACT. DIMINISHED BIBASILAR LUNG SOUNDS RA. PATIENT POX 88% AND PLACED ON 2LNC WITH REPEAT POX 98%. PATIENT DENIES ANY CHEST PAIN OR SOB TELE 100%V PACED WITH HR
70. RUE SLING AND PRESSURE DRESSING INTACT WITH NO DRAINAGE. EKG COMPLETED PER ORDER AND POST TROPONIN LAB WORK COLLECTED. EDUCATED PATIENT RUE RESTRICTIONS VERBALLY AND PATIENT VERBALLY STATED TO UNDERSTAND EDUCATION PROVIDED. Q 30MIN *2 POST
VITALS NOTED WITH INITIAL VITALS COMPLETED. WILL CONTINUE TO MONITOR
[2023-08-26] MEDS: ANCEF 5 IV (21:57)
[2023-08-26] MEDS: ATIVAN 0.5 MG PO (22:00)
[2023-08-26 22:05] LABS: Troponin I 0.983 ng/ml
[2023-08-27] MEDS: TYLENOL 650 MG PO ×4 (03:25→22:29)
[2023-08-27 03:29] VITALS: BP 131/48
[2023-08-27] MEDS: ANCEF 5 IV (05:56)
[2023-08-27 06:00] VITALS: BMI 24.1
[2023-08-27 07:00] VITALS: BP 130/50
[2023-08-27 09:16] LABS: Hematocrit 31.5 % (37.0-47.0); Hemoglobin 10.9 g/dL (12.0-16.0); Mean Corp Hgb Conc. 34.6 g/dL (33.0-37.0); Mean Corpuscular Hgb 34.7 pg (27.0-31.0); Mean Corpuscular Volume 100.3 fL (81.0-99.0); Mean Platelet Volume 9.7 fL (7.4-10.4); Platelet Count 191 10^3/uL (130-400); Red Blood Cell Count 3.14 10^6/uL (4.20-5.40); White Blood Cell Count 5.6 10^3/uL (4.8-10.8)
[2023-08-27 09:45] LABS: Blood Urea Nitrogen 18 mg/dl (7-17); Calcium 8.9 mg/dl (8.4-10.2); Carbon Dioxide 29 mmol/L (22-30); Chloride 102 mmol/L (98-107); Estimated Creatinine Clearance 41 ml/min; Glucose 120 mg/dl (70-99); Magnesium 2.4 mg/dl (1.6-2.3); Potassium 3.7 mmol/L (3.5-5.1); Sodium 140 mmol/L (135-145); eGFR > 60.00
[2023-08-27] MEDS: LASIX 40 MG IV ×2 (09:47→16:30)
[2023-08-27] MEDS: FEOSOL 325 MG PO (09:47)
[2023-08-27] MEDS: TOPROL XL 25 MG PO ×2 (09:47→20:23)
[2023-08-27] MEDS: KCL 10 MEQ PO ×2 (09:48→20:23)
[2023-08-27] MEDS: ALDACTONE 12.5 MG PO (09:49)
[2023-08-27] MEDS: ENTRESTO 24 MG/26 MG 1 TAB PO ×2 (09:49→20:23)
[2023-08-27 10:40] LABS: Troponin I 0.404 ng/ml
[2023-08-27 11:00] VITALS: BP 132/58
--- NOTE | 2023-08-27 11:26 | W.PN.CARDCBS ---
Addendum entered and electronically signed by Sharon Watt DO 08/27/23 17:29:
I saw and examined the patient.
The Sheet Metal Lay Out Worker's note was reviewed and I agree with the note.
Comment: Seen and examined. Overall feels well and denies symptoms
GEN: NAD, AAO x 3
HEENT: Mucous membranes moist
LUNGS: CTA, no wheezes/rales
CV: Reg, S1/S2, no murmur, rubs or gallops
CHEST: Pacemaker incision dressing C/D/I without hematoma; pressure dressing removed
ABD: soft, BS+, NT/ND
EXT: No edema
NEURO: Gross non-focal
Plan:
Acute on chronic heart failure with reduced EF, BNP 10927
-She looks better regarding heart failure
-Weight down 4 lbs since admission
-Continue IV diuresis with consideration of transitioning to oral lasix in next 24 hours
-Creatinine stable at 0.8.
-Potassium 3.7 would replete, give additional KCL
-Continue Toprol, Entresto.
-New to Aldactone 12.5 mg daily . Consider uptitration of BP and renal function allow
Abnormal troponin, peaked at 1.04.� Suspect nonischemic myocardial injury secondary to acute heart failure
S/p uncomplicated single chamber Medtronic conduction system pacemaker implant with successful selective LBB capture after malfunctioning lead w/ fracture of prior RV lead on 08/26/2023
-ECG stable with Ventricular pacing now capturing
-Pacing system is MRI conditional.
-Outpt cardilogy wound check arranged
Permanent atrial fibrillation
-Heart rates well-controlled on Toprol.
-Continue Xarelto
-remains off dig, level 0.9 on 08/25/2023
Anticipate discharge home tomorrow
Original Note:
Today's Communication / Plan
-
Replete potassium
Continue IV diuresis for another 24 hours and likely transition to oral Lasix tomorrow
Encourage pt to ambulate around the unit
Outpatient cardiology follow-up wound check arranged
Anticipate discharge in next 24 hours
Impression / Plan
-
Please refer to office note dated 08/25/23
Primary Outpatient Psychiatrist: Dr. ANSHUL Taylor
Assessment:
Nausea
Dizziness
Orthopnea
Acute on chronic HFrEF
Concern for failure of ventricular capture
Concern for digoxin toxicity
H/o Inappropriate ICD shock for lead fracture 06/23/23
Medtronic Bi-V ICD Implant
Failure of pacemaker lead LV lead off, diaphragmatic stimulation
s/p single chamber Medtronic conduction system pacemaker implant with successful selective LBB capture on 08/26/2023
LV lead Medtronic [id number] Attain from 06/20/03, RV lead Medtronic 6947 Sprint Quattro from 06/20/03, RA Medtronic 5076 CapSureFix from 10/19/02
CKD 3b
CAD
s/p anterior [place] with LAD stent 1995
Ischemic cardiomyopathy
LBBB (left bundle branch block)
Permanent Afib
Chronic anticoagulation with Xarelto
PAD with lower extremity claudication/Occluded R subclavian/bilateral SFA occlusion
Bilateral renal artery stenosis status post bilateral stents
Hypertension
Former smoker
Hyperlipidemia
Type 2 diabetes mellitus
Gout
Echo 06/21/2023: EF 43%, apex and apical septum and apical inferior akinetic/hypokinetic (already known), severely enlarged bilateral atria, mild MR, mild TR
Plan:
Acute on chronic heart failure with reduced EF, BNP 47428
-She looks better regarding heart failure
-Weight down 4 lbs since admission
-Continue IV diuresis with consideration of transitioning to oral lasix in next 24 hours
-Creatinine stable at 0.8.
-Potassium 3.7 would replete, give additional KCL
-Continue Toprol, Entresto.
-New to Aldactone 12.5 mg daily . Consider uptitration of BP and renal function allow
Abnormal troponin, peaked at 1.04. Suspect nonischemic myocardial injury secondary to acute heart failure
S/p uncomplicated single chamber Medtronic conduction system pacemaker implant with successful selective LBB capture after malfunctioning lead w/ fracture of prior RV lead on 08/26/2023
-ECG stable with Ventricular pacing now capturing
-Pacing system is MRI conditional.
-Outpt cardilogy wound check arranged
Permanent atrial fibrillation
-Heart rates well-controlled on Toprol.
-Continue Xarelto
-remains off dig, level 0.9 on 08/25/2023
-Patient with history of permanent atrial fibrillation, heart failure with mildly reduced EF, ischemic cardiomyopathy status post BiV ICD implant, chronic left bundle branch block, PAD who had been doing well until [place] time. She presented at
that time with dehydration nausea and vomiting and inappropriate ICD discharges related to an RV lead fracture. At that time her ICD tachycardia therapies were turned off due to inappropriate discharges. Then in June she had another admission
for viral illness and possible heart failure. She was then admitted later in June with acute heart failure and at that point heart rate was difficult to control, transiently on digoxin. The beginning of July she was still felt to be in
acute heart failure and furosemide dose increased and cardiomyopathy medicines added back. Digoxin was restarted at that time as well. Most recent outpatient digoxin level was 1.1 and her dig dose was decreased last week due to this. She
presented to the office today with orthopnea, nausea, dizziness, weakness. Device interrogation today in office showed bradycardia, increased ventricular capture threshold, as well as evidence of some failure to capture. Her LV lead produces
diaphragmatic pacing. She is not pacer dependent. Her ventricular rate was increased from 50-70 and output was increased from 2 V to 4 V for now. Plan for admission for diuresis and medical adjustment, with plan for implantation of new
single-chamber pacemaker on the right with left bundle pacing likely early next week.
Progress Note - Outpatient Psychiatrist
Subjective
Date of Service: August 27, 2023
Patient seen and examined. Patient resting comfortably in bed. Patient's family also at bedside. She reports feeling less short of breath, less fatigue and improved dizziness since revision of pacemaker.
Objective
Labs:
08/27/23 09:00
08/27/23 09:00
Labs
Hgb 10.9 g/dL (12.0-16.0) L 08/27/23 09:00
Hct 31.5 % (37.0-47.0) L 08/27/23 09:00
Plt Count 191 10^3/uL (130-400) 08/27/23 09:00
Sodium 140 mmol/L (135-145) 08/27/23 09:00
Potassium 3.7 mmol/L (3.5-5.1) 08/27/23 09:00
BUN 18 mg/dl (7-17) H 08/27/23 09:00
Creatinine 0.8 mg/dL (0.6-1.0) 08/27/23 09:00
Glucose 120 mg/dl (70-99) H 08/27/23 09:00
Digoxin 0.9 ng/ml (0.8-2.0) 08/25/23 16:55
Troponins
08/26/23 08/26/23 08/26/23
09:03 17:38 21:14
Troponin I 0.084 H* 1.040 H* 0.983 H*
08/27/23 08/27/23 08/27/23
09:35 09:41 09:42
Troponin I Cancelled 0.404 H* Cancelled
Vital Signs and I&O:
Vital Signs
Temp Pulse Resp BP Pulse Ox
98.0 F 66 18 130/50 95
08/27/23 07:00 08/27/23 07:00 08/27/23 07:00 08/27/23 07:00 08/27/23 07:00
Vital Signs
Temp Pulse Resp BP Pulse Ox
98.0 F 66 18 130/50 95
08/27/23 07:00 08/27/23 07:00 08/27/23 07:00 08/27/23 07:00 08/27/23 07:00
Intake & Output
08/25/23 08/26/23 08/27/23 08/28/23
06:59 06:59 06:59 06:59
Intake Total 120 / 120 360 / 360
Output Total 900 / 900
Balance 120 / 120 -540 / -540
Physical Exam
Physical Exam
GEN: No distress, awake, Ox3, sittin in bed
HEENT: supple, anicteric, mmm
LUNGS: CTA, no wheezes/rales
CV: Reg, S1/S2, no murmur, rubs or gallops
CHEST: Pacemaker incision dressing C/D/I without hematoma
ABD: soft, BS+, NT/ND
EXT: No edema, clubbing or cyanosis
NEURO: Gross non-focal
SKIN: No rash
[2023-08-27] MEDS: KCL 40 MEQ PO (12:43)
[2023-08-27 15:00] VITALS: BP 128/44
[2023-08-27] MEDS: LASIX IV (15:51)
--- NOTE | 2023-08-27 17:42 | W.PN.HOSP.TC ---
Today's Communication/Plan
-
Hopefully can transition to oral Lasix tomorrow
Assessment / Plan
Assessment / Plan
Physical Exam
General: Well Developed, Well Nourished and No Apparent Distress
HEENT: Normocephalic, Moist mucous membranes and Atraumatic
Respiratory: Decreased breath sounds bilaterally
Cardiac: S1/S2 and Regular Rhythm
GI: Soft, Non Tender, Non Distended and Normal Bowel Sounds
Musculoskeletal: No Cyanosis and No Edema
Skin: Warm. Dry.
Neuro: AAO x 3 and Nonfocal/grossly intact
Psych: Calm
Assessment/Plan
# Dizziness likely from bradycardia s/p uncomplicated single chamber Medtronic conduction system pacemaker implant with successful selective LBB capture on August 26, 2023
-Pacemaker interrogation as per cardiology
-Hold digoxin and metoprolol
-New pacemaker on August 26, 2023 as patient lost capture with pacemaker
-Xarelto continued
-Cardiology consulted, recommendations appreciated
#Acute on chronic heart failure with reduced EF, BNP 22516
-BNP 42960
-IV Lasix 40 mg twice a day
-Hopefully switch to oral Lasix tomorrow
-Echo 06/21/23: EF 43%. Normal right ventricular size and function. Severely enlarged left atrium. Severely enlarged right atrium. Mild mitral regurgitation. Mild tricuspid regurgitation.
-Daily weights
-Strict I's and O's
-Continue Toprol XL and Entresto
-Restart Spironolactone (new to this medication as of August 26, 2023)
#Elevated troponin - suspected to be nonischemic myocardial injury secondary to acute heart failure
#Permanent atrial fibrillation
-Continue Toprol
-Continue Xarelto
-remains off digoxin, level 0.9 on 08/25/2023
-Digoxin stopped
# Anemia of chronic disease
-No active bleeding
-Continue to monitor
#Essential Hypertension
-cont BB
-Entresto continued
#PAD with lower extremity claudication/Occluded R subclavian/bilateral SFA occlusion
#Bilateral renal artery stenosis status post bilateral stents
#h/o CAD s/p PCI: cont BB
#h/o Medtronic Bi-V ICD Implant
Review history
#FULL/Xarelto
Anticipated Discharge: 24 - 48 hours
Subjective/Interval History
-
Date of Service: August 27, 2023
Patient was seen and examined. She denied any new complaints or symptoms, denied any chest pain or shortness of breath.
Objective Data
-
Labs:
Laboratory Results
08/27/23
09:00
WBC 5.6
Hgb 10.9 L
Hct 31.5 L
Plt Count 191
Sodium 140
Potassium 3.7
Chloride 102
Carbon Dioxide 29
BUN 18 H
Creatinine 0.8
Glucose 120 H
Calcium 8.9
Vital Signs:
Vital Signs
Temp Pulse Resp BP Pulse Ox
98.0 F 71 18 128/44 95
08/27/23 15:00 08/27/23 15:00 08/27/23 15:00 08/27/23 15:00 08/27/23 15:00
I&O
08/26/23 08/27/23 08/28/23
06:59 06:59 06:59
Intake Total 120 / 120 360 / 360
Output Total 900 / 900
Balance 120 / 120 -540 / -540
[2023-08-27 19:04] VITALS: BP 97/42
[2023-08-27] MEDS: ATIVAN 0.5 MG PO (22:30)
[2023-08-27 23:29] VITALS: BP 114/70
[2023-08-28] VITALS (7 sets, daily range): BP systolic 102–133; BP diastolic 46–62; PULSE 70; O2SAT 92–93; BMI 24.1
[2023-08-28 07:38] LABS: Hemoglobin 9.6 g/dL (12.0-16.0); Mean Corp Hgb Conc. 34.3 g/dL (33.0-37.0); Mean Corpuscular Hgb 34.5 pg (27.0-31.0); Mean Corpuscular Volume 100.7 fL (81.0-99.0); Platelet Count 166 10^3/uL (130-400); Red Blood Cell Count 2.78 10^6/uL (4.20-5.40); Red Cell Dist. Width 17.5 % (11.5-14.5); White Blood Cell Count 4.9 10^3/uL (4.8-10.8)
[2023-08-28] MEDS: ALDACTONE 12.5 MG PO (08:07)
[2023-08-28] MEDS: LASIX 40 MG IV (08:07)
[2023-08-28] MEDS: TOPROL XL 25 MG PO (08:07)
[2023-08-28] MEDS: ENTRESTO 24 MG/26 MG 1 TAB PO (08:07)
[2023-08-28] MEDS: KCL 10 MEQ PO (08:07)
[2023-08-28] MEDS: FEOSOL 325 MG PO (08:07)
[2023-08-28] MEDS: TYLENOL 650 MG PO ×2 (08:11→15:53)
[2023-08-28 08:29] LABS: Blood Urea Nitrogen 18 mg/dl (7-17); Calcium 8.7 mg/dl (8.4-10.2); Carbon Dioxide 27 mmol/L (22-30); Chloride 103 mmol/L (98-107); Estimated Creatinine Clearance 41 ml/min; Glucose 115 mg/dl (70-99); Potassium 3.9 mmol/L (3.5-5.1); Sodium 137 mmol/L (135-145); eGFR > 60.00
[2023-08-28] MEDS: KCL 20 MEQ PO (09:39)
--- NOTE | 2023-08-28 14:19 | W.PN.HOSP.TC ---
Today's Communication/Plan
-
Discharge today
Assessment / Plan
Assessment / Plan
Physical Exam
General: Well Developed, Well Nourished and No Apparent Distress
HEENT: Normocephalic, Moist mucous membranes and Atraumatic
Respiratory: CTAB
Cardiac: S1/S2 and Regular Rhythm
GI: Soft, Non Tender, Non Distended and Normal Bowel Sounds
Musculoskeletal: No Cyanosis and No Edema
Skin: Warm. Dry.
Neuro: AAO x 3 and Nonfocal/grossly intact
Psych: Calm
Assessment/Plan
#Dizziness likely from bradycardia status post uncomplicated single chamber Medtronic conduction system pacemaker implant with successful selective LBB capture on August 26, 2023
-Pacemaker interrogation as per cardiology
-Hold digoxin
-Continue Metoprolol
-New pacemaker on August 26, 2023 as patient lost capture with pacemaker
-Continue Xarelto
-Cardiology consulted, recommendations appreciated
#Acute on chronic heart failure with reduced EF, BNP 03899
-BNP 15977
-IV Lasix 40 mg twice a day while inpatient
-On discharge resume Furosemide 40 mg PO daily
-Echo 06/21/23: EF 43%. Normal right ventricular size and function. Severely enlarged left atrium. Severely enlarged right atrium. Mild mitral regurgitation. Mild tricuspid regurgitation.
-Daily weights
-Strict I's and O's
-Continue Toprol XL and Entresto
-Continue Spironolactone (new to this medication as of August 26, 2023)
-Recheck BMP within 5 days
#Elevated troponin - suspected to be nonischemic myocardial injury secondary to acute heart failure
#Permanent atrial fibrillation
-Continue Toprol
-Continue Xarelto
-remains off digoxin, level 0.9 on 08/25/2023
-Digoxin stopped
#Anemia of chronic disease
-No active bleeding
-Continue to monitor
#Essential Hypertension
-cont BB
-Entresto continued
#PAD with lower extremity claudication/Occluded R subclavian/bilateral SFA occlusion
#Bilateral renal artery stenosis status post bilateral stents
#h/o CAD s/p PCI: cont BB
#h/o Medtronic Bi-V ICD Implant
#FULL/Xarelto
More than 30 minutes spent in discharge including
Final examination of the patient
Summarizing hospital stay
Instructions for continuing care to all relevant caregivers
Preparation of discharge records, prescriptions, and referral forms
Total time spent (in minutes): 38
Anticipated Discharge: Today
Subjective/Interval History
-
Date of Service: August 28, 2023
Patient was seen and examined. She denied any chest pain, shortness of breath or any other new symptoms, and she said she is okay with going home today.
Objective Data
-
Labs:
Laboratory Results
08/28/23
07:17
WBC 4.9
Hgb 9.6 L
Hct 28.0 L
Plt Count 166
Sodium 137
Potassium 3.9
Chloride 103
Carbon Dioxide 27
BUN 18 H
Creatinine 0.8
Glucose 115 H
Calcium 8.7
Vital Signs:
Vital Signs
Temp Pulse Resp BP Pulse Ox
97.7 F 71 16 121/48 94
08/28/23 11:42 08/28/23 11:42 08/28/23 11:42 08/28/23 11:42 08/28/23 11:42
I&O
08/27/23 08/28/23 08/29/23
06:59 06:59 06:59
Intake Total 360 / 360 1440 / 1440
Output Total 900 / 900 600 / 600
Balance -540 / -540 840 / 840
--- NOTE | 2023-08-28 14:28 | CM ---
Patient seen bedside.
PTG/OT recommending home care.
Referral to [facility].
IMM completed.
Plan: home with [facility].
--- NOTE | 2023-08-28 14:51 | W.DS.TRANS ---
DC Summary - Culture Manager
-
Discharge Instructions:
Discharge Diagnosis/Procedures #Right side pacemaker with RV lead
#Dizziness likely from bradycardia status post
uncomplicated single chamber Medtronic
conduction system pacemaker implant with
successful selective LBB capture on August 25
2023
#Acute on chronic heart failure with reduced
ejection fraction, BNP 82967
#Elevated troponin - suspected to be non-
ischemic myocardial injury secondary to acute
heart failure
#Permanent atrial fibrillation
#Anemia of chronic disease
#Essential Hypertension
#Peripheral Artery Disease with lower extremity
claudication/Occluded Right subclavian/bilateral
SFA occlusion
#Bilateral renal artery stenosis status post
bilateral stents
#History of Coronary Artery Disease status post
PCI
#History of Medtronic Bi-V ICD Implant
Diet Low Cholesterol,2 Gram Sodium,Diabetic, Carb
Controlled,Restrict fluids to 64 oz
Driving Restrictions No driving for 1 week
Bathing Restrictions OK to Shower
Specialty Instructions Weigh Daily
Instructions: *[facility] Heart Failure Instructions
Stand-Alone Forms: [facility] Inst - Implanted Device
Changes to Home Medications: Yes
Discharge Medications:
DC Medications w/original date entered in Experiment
rivaroxaban 15 mg tablet (Xarelto) 15 mg PO QPM 30 days #30 tabs 07/06/23
ferrous sulfate 325 mg (65 mg iron) tablet (FeroSul) 325 mg PO DAILY Supplement 07/17/23
furosemide 40 mg tablet 40 mg PO DAILY Fluid Retention/Swelling 07/17/23
sacubitril 24 mg-valsartan 26 mg tablet (Entresto) 1 tab PO BID #60 tabs 07/20/23
digoxin 125 mcg (0.125 mg) tablet 125 mcg PO DAILY Arrhythmia 08/25/23
lorazepam 0.5 mg tablet (Ativan) 0.5 mg PO HS PRN anxiety 08/25/23
metoprolol succinate 25 mg tablet,extended release 24 hr 25 mg PO BID #60 tabs 08/28/23
potassium chloride 10 mEq tablet,extended release 10 meq PO DAILY Electrolyte Repletion #0 tabs 08/28/23
spironolactone 25 mg tablet 12.5 mg PO DAILY #30 tabs 08/28/23
Home Medication Changes
New medications are metoprolol succinate and spironolactone
Potassium chloride was changed to 10 meq daily
Digoxin is on hold
Metoprolol Succinate was stopped
Pending Results: No
Total time spent discharging patient (in min): 38
--- NOTE | 2023-08-28 19:48 | W.PN.CARDCBS ---
Today's Communication / Plan
-
DC home today with cardiology follow-up
Impression / Plan
-
Primary Senior Staff Accountant: Dr. ANSHUL Taylor
Assessment:
Nausea
Dizziness
Orthopnea
Acute on chronic HFrEF
Concern for failure of ventricular capture
Concern for digoxin toxicity
H/o Inappropriate ICD shock for lead fracture 06/23/23
Medtronic Bi-V ICD Implant
Failure of pacemaker lead LV lead off, diaphragmatic stimulation
s/p single chamber Medtronic conduction system pacemaker implant with successful selective LBB capture on 08/26/2023
LV lead Medtronic [id number] Attain from 06/20/03, RV lead Medtronic 6947 Sprint Quattro from 06/20/03, RA Medtronic 5076 CapSureFix from 10/19/02
CKD 3b
CAD
s/p anterior [place] with LAD stent 1995
Ischemic cardiomyopathy
LBBB (left bundle branch block)
Permanent Afib
Chronic anticoagulation with Xarelto
PAD with lower extremity claudication/Occluded R subclavian/bilateral SFA occlusion
Bilateral renal artery stenosis status post bilateral stents
Hypertension
Former smoker
Hyperlipidemia
Type 2 diabetes mellitus
Gout
Echo 06/21/2023: EF 43%, apex and apical septum and apical inferior akinetic/hypokinetic (already known), severely enlarged bilateral atria, mild MR, mild TR
Plan:
Acute on chronic heart failure with reduced EF, BNP 46396
-She looks better regarding heart failure
-Weight today 131 pounds
-Transition to oral Lasix 40 mg daily
-Sodium 137, potassium 3.9, BUN/creatinine 18/0.8 on day of discharge.
-Continue goal-directed medical therapy including New to Aldactone 12.5 mg daily .
Abnormal troponin, peaked at 1.04.� Suspect nonischemic myocardial injury secondary to acute heart failure
S/p uncomplicated single chamber Medtronic conduction system pacemaker implant with successful selective LBB capture after malfunctioning lead w/ fracture of prior RV lead on 08/26/2023
-Device site without hematoma
-Activity restrictions and wound care reviewed
-Outpatient follow-up in our office
Permanent atrial fibrillation
-Heart rates well-controlled on Toprol.
-Continue Xarelto 15 mg daily
-Outpatient digoxin held at time of discharge, level 0.9 on 08/25/2023
Stable for discharge home today
Outpatient cardiac follow-up arranged
-Patient with history of permanent atrial fibrillation, heart failure with mildly reduced EF, ischemic cardiomyopathy status post BiV ICD implant, chronic left bundle branch block, PAD who had been doing well until Natan time. She presented at
that time with dehydration nausea and vomiting and inappropriate ICD discharges related to an RV lead fracture. At that time her ICD tachycardia therapies were turned off due to inappropriate discharges. Then in June she had another admission
for viral illness and possible heart failure. She was then admitted later in June with acute heart failure and at that point heart rate was difficult to control, transiently on digoxin. The beginning of July she was still felt to be in
acute heart failure and furosemide dose increased and cardiomyopathy medicines added back. Digoxin was restarted at that time as well. Most recent outpatient digoxin level was 1.1 and her dig dose was decreased last week due to this. She
presented to the office today with orthopnea, nausea, dizziness, weakness. Device interrogation today in office showed bradycardia, increased ventricular capture threshold, as well as evidence of some failure to capture. Her LV lead produces
diaphragmatic pacing. She is not pacer dependent. Her ventricular rate was increased from 50-70 and output was increased from 2 V to 4 V for now. Plan for admission for diuresis and medical adjustment, with plan for implantation of new
single-chamber pacemaker on the right with left bundle pacing likely early next week.
Progress Note - Senior Staff Accountant
Subjective
Date of Service: August 28, 2023
Seen and examined sitting out of bed to chair. Feels well and anxious to go home with family
Objective
Labs:
08/28/23 07:17
08/28/23 07:17
Labs
Hgb 9.6 g/dL (12.0-16.0) L 08/28/23 07:17
Hct 28.0 % (37.0-47.0) L 08/28/23 07:17
Plt Count 166 10^3/uL (130-400) 08/28/23 07:17
Sodium 137 mmol/L (135-145) 08/28/23 07:17
Potassium 3.9 mmol/L (3.5-5.1) 08/28/23 07:17
BUN 18 mg/dl (7-17) H 08/28/23 07:17
Creatinine 0.8 mg/dL (0.6-1.0) 08/28/23 07:17
Glucose 115 mg/dl (70-99) H 08/28/23 07:17
Digoxin 0.9 ng/ml (0.8-2.0) 08/25/23 16:55
Troponins
08/26/23 08/26/23 08/26/23
09:03 17:38 21:14
Troponin I 0.084 H* 1.040 H* 0.983 H*
08/27/23 08/27/23 08/27/23
09:35 09:41 09:42
Troponin I Cancelled 0.404 H* Cancelled
Vital Signs and I&O:
Vital Signs
Temp Pulse Resp BP Pulse Ox
97.7 F 71 12 120/46 96
08/28/23 15:33 08/28/23 15:33 08/28/23 15:33 08/28/23 15:33 08/28/23 15:33
Vital Signs
Temp Pulse Resp BP Pulse Ox
97.7 F 71 12 120/46 96
08/28/23 15:33 08/28/23 15:33 08/28/23 15:33 08/28/23 15:33 08/28/23 15:33
Intake & Output
08/26/23 08/27/23 08/28/23 08/29/23
06:59 06:59 06:59 06:59
Intake Total 120 / 120 360 / 360 1440 / 1440 550 / 550
Output Total 900 / 900 600 / 600
Balance 120 / 120 -540 / -540 840 / 840 550 / 550
Physical Exam
Physical Exam
GEN: No distress, awake, Ox3, sittin in bed
HEENT: supple, anicteric, mmm
LUNGS: CTA, no wheezes/rales
CV: V paced, positive S1-S2. No murmur
CHEST: Pacemaker incision dressing C/D/I without hematoma
ABD: soft, BS+, NT/ND
EXT: No edema, clubbing or cyanosis
--- NOTE | 2023-08-29 09:11 | W.DCSUMMARY ---
Discharge Summary
Discharge Data
Date of Admission: 08/25/23
Date of Discharge: 08/28/23
Total time spent discharging patient (in min): 38
-
Pending Results: No
Hospital Course
83 y/o female with past medical history of hypertension hyperlipidemia ND CHF pacemaker - ICD, afib on Xarelto was sent from forepart laster Dr. Taylor's office due to lightheadedness. Patient was seen today by cardiology and found to have a low heart
rate. She felt lightheaded and nauseous in the office. Her heart rate was 50 bpm in the office, physician assistant professor of psychology reported that her pacemaker was previously set to 50 bpm because she had a history of elevated heart rate. Dr. Taylor did increase
her pacemaker heart rate to 70 and also increased the voltage.
Patient's Toprol XL was decreased (later held, as per cardiology) and his Digoxin was held. Patient was also started on intravenous Lasix for acute heart failure. Cardiology consulted and noted that patient's 'remotely place RV ICD lead was actively
failing (fracture) with intermittent noncapture or more likely failure to output in VOO mode. Underlying rhythm is AFib in the low 30's.' On August 26, 2023, patient had an uncomplicated single chamber Medtronic conduction system pacemaker implant
with successful selective LBB capture - the pacing system was noted to be MRI conditional. Cardiology advised (right after the procedure) to resume Xarelto on the evening of August 28, 2023.
Patient lost fluid weight and was stable for discharge on oral home Lasix.
Discharge Plan
-
Patient Disposition: Home with Home Care
Discharge Diagnosis/Procedures: #Right side pacemaker with RV lead
#Dizziness likely from bradycardia status post uncomplicated single chamber Medtronic conduction system pacemaker implant with successful selective LBB capture on August 26, 2023
#Acute on chronic heart failure with reduced ejection fraction, BNP 49582
#Elevated troponin - suspected to be non-ischemic myocardial injury secondary to acute heart failure
#Permanent atrial fibrillation
#Anemia of chronic disease
#Essential Hypertension
#Peripheral Artery Disease with lower extremity claudication/Occluded Right subclavian/bilateral SFA occlusion
#Bilateral renal artery stenosis status post bilateral stents
#History of Coronary Artery Disease status post PCI
#History of Medtronic Bi-V ICD Implant
Diet: Low Cholesterol, 2 Gram Sodium, Diabetic, Carb Controlled and Restrict fluids to 64 oz
Driving Restrictions: No driving for 1 week
Bathing Restrictions: OK to Shower
Specialty Instructions: Weigh Daily- Call MD for wt gain/loss 3 lbs overnight/5 lbs in 1 week
Activity Restrictions/Additional Instructions:
YOU NEED TO TALK TO YOUR PRIMARY CARE PROVIDER BY AUGUST 30, 2023 ABOUT RECHECKING YOUR POTASSIUM LEVELS (BASIC METABOLIC PANEL LABWORK) AND MAKING ANY NEEDED ADJUSTMENTS TO YOUR HOME POTASSIUM CHLORIDE MEDICATION DOSING (SINCE YOU NOW HAVE BEEN
STARTED ON SPIRONOLACTONE)
YOU NEED TO TALK WITH YOUR MOLD HOLDER REGARDING IF AND WHEN TO RESUME YOUR DIGOXIN
Instructions: *[facility] Heart Failure Instructions
Stand Alone Forms: [facility] Inst - Implanted Device
Referrals:
[facility] [Provider Group] - 09/02/23 2:40 pm (Incision check appointment)
Richard Reagan MD [Family Provider] - in two to three days (PATIENT NEEDS RECHECK OF HER POTASSIUM LEVELS (BASIC METABOLIC PANEL LABWORK) AND EVALUATION FOR ANY NEEDED ADJUSTMENTS TO HER HOME POTASSIUM CHLORIDE MEDICATION DOSING (SINCE SHE HAS NOW
BEEN STARTED ON SPIRONOLACTONE))
Prescriptions:
New
metoprolol succinate 25 mg Tablet Extended Release 24 Hr
25 mg PO BID Qty: 60 2RF
spironolactone 25 mg Tablet
12.5 mg PO DAILY Qty: 30 1RF
Continued
Xarelto 15 mg tablet
15 mg PO QPM 30 Days Qty: 30 0RF
furosemide 40 mg tablet
40 mg PO DAILY
ferrous sulfate [FeroSul] 325 mg (65 mg iron) tablet
325 mg PO DAILY
Entresto 24-26 mg Tablet
1 tab PO BID Qty: 60 0RF
lorazepam [Ativan] 0.5 mg Tablet
0.5 mg PO HS PRN (Reason: anxiety)
Changed
potassium chloride 10 mEq Tablet Extended Release
10 meq PO DAILY Qty: 0 0RF
Held
digoxin 125 mcg (0.125 mg) Tablet
125 mcg PO DAILY
Hold Instructions: Resume on 10/19/23. YOU NEED TO TALK WITH YOUR MOLD HOLDER REGARDING IF AND WHEN TO RESUME YOUR DIGOXIN
Discontinued
metoprolol succinate 50 mg Tablet Extended Release 24 Hr
50 mg PO BID 30 Days Qty: 60 0RF
Discharge Orders:
Discharge Patient (As Directed); Ordered 08/28/23
Ordered By: Ryland Moya
Discharge Date and Time
Discharge Date/Time: 08/28/23 16:59
== END 2023-08-28 16:59 | disposition home health service (06) | DRG 265 ==
LOC: 4 WEST ACU 18:58
PROVIDERS: Internal Medicine Cardiovascular Disease; Nurse Practitioner; Registered Nurse; ADMITTING PHYSICIAN Hospitalist; EMERGENCY PHYSICIAN Student in an Organized Health Care Education/Training Program; FAMILY PHYSICIAN Internal Medicine Geriatric Medicine
PROC: 02H43KZ Insertion of Defibrillator Lead into Coronary Vein, Percutaneous Approach (ICD-10-PCS; 2023-08-26)
DX: T82.110A Breakdown (mechanical) of cardiac electrode, initial encounter (principal); I50.23 Acute on chronic systolic (congestive) heart failure; I13.0 Hypertensive heart and chronic kidney disease with heart failure and stage 1 through stage 4 chronic kidney disease, or unspecified chronic kidney disease; I44.2 Atrioventricular block, complete; I48.21 Permanent atrial fibrillation; Y71.8 Miscellaneous cardiovascular devices associated with adverse incidents, not elsewhere classified; N18.32 Chronic kidney disease, stage 3b; I25.10 Atherosclerotic heart disease of native coronary artery without angina pectoris; I25.5 Ischemic cardiomyopathy; I70.213 Atherosclerosis of native arteries of extremities with intermittent claudication, bilateral legs; E11.9 Type 2 diabetes mellitus without complications; E78.5 Hyperlipidemia, unspecified; D63.8 Anemia in other chronic diseases classified elsewhere; I25.2 Old myocardial infarction; Z79.01 Long term (current) use of anticoagulants; Z79.84 Long term (current) use of oral hypoglycemic drugs; Z87.891 Personal history of nicotine dependence
CPT/HCPCS: 33207; 71045; 71046; 80048; 80053; 80061; 80162; 82248; 83735; 83880; 84443; 84484; 85025; 85027; 93005; 97162; 97165; 99285; C1769; C1786; C1887; C1892; C1898

== ENCOUNTER → 2023-12-05 13:34 | Outpatient (REF) | payer OTHER, SELFPAY | LOC: RCS 13:34 | PROVIDERS: ATTENDING PHYSICIAN Internal Medicine Cardiovascular Disease; FAMILY PHYSICIAN Nurse Practitioner Primary Care | DX: I50.22 Chronic systolic (congestive) heart failure (principal); I25.5 Ischemic cardiomyopathy; I44.7 Left bundle-branch block, unspecified | CPT/HCPCS: 93306 ==

== ENCOUNTER → 2025-02-19 07:07 | Outpatient (REF) | payer OTHER, SELFPAY | LOC: RAD 07:07 | PROVIDERS: ATTENDING PHYSICIAN Nurse Practitioner Primary Care | DX: I77.1 Stricture of artery (principal); I65.23 Occlusion and stenosis of bilateral carotid arteries; I73.9 Peripheral vascular disease, unspecified | CPT/HCPCS: 93880; 93922; 93925; 93930 ==